=== PATIENT | male | born 1990 | race Caucasian/White ===

== ENCOUNTER 2022-04-14 18:58 | Inpatient (IN) ==
[2022-04-14 19:37] LABS: Basophils # (auto) 0.07 K/uL (0-0.2); Basophils % (auto) 0.7 %; Eosinophils # (auto) 0.33 K/uL (0-0.50); Eosinophils % (auto) 3.2 %; Hematocrit (blood only) 45.5 % (42.0-52.0); Hemoglobin 15.6 g/dl (14.0-18.0); Immature Granulocytes # (auto) 0.05 K/uL (0.01-0.20); Immature Granulocytes % (auto) 0.5 %; Lymphocytes # (auto) 3.36 K/uL (1.2-3.4); Lymphocytes % (auto) 32.4 %; Mean Corpuscular Hemoglobin 29.7 pg (25.0-34.0); Mean Corpuscular Hgb Conc 34.3 g/dL (32.0-36.0); Mean Corpuscular Volume 86.5 fL (80.0-100.0); Mean Platelet Volume 9.7 fL (9.4-12.4); Monocytes # (auto) 0.74 K/uL (0.11-0.59); Monocytes % (auto) 7.1 %; Neutrophils # (auto) 5.83 K/uL (1.40-6.50); Neutrophils % (auto) 56.1 %; Platelet Count 324 K/uL (130-400); RDW Coefficient of Variation 12.6 % (11.5-14.5); Red Blood Count 5.26 M/uL (4.70-6.10); White Blood Count 10.38 K/ul (4.8-10.8)
[2022-04-14 19:57] LABS: Partial Thromboplastin Ratio 1.1; Partial Thromboplastin Time 30.2 Seconds (21.0-31.0); Prothrombin Time 10.5 Seconds (9.0-12.0)
[2022-04-14 19:59] LABS: Albumin Level 4.5 gm/dl (3.4-5.0); Bilirubin,Total 0.3 mg/dl (0.2-1.0); Calcium 9.2 mg/dl (8.5-10.1); Potassium 4.4 mmol/L (3.5-5.1)
[2022-04-14 20:05] LABS: BUN Creatinine Ratio 16.2 (10-20); Creatinine Clr Calc Pharmacy 142.3 ml/min; Est GFR (African American) 115.5 ml/min; Est GFR (Non-African American) 99.7 ml/min
[2022-04-14] MEDS ORDERED: ONDANSETRON INJ 2 MG/ML 2 ML VIAL IV STA (20:43)
[2022-04-14] MEDS ORDERED: SODIUM CHLORIDE 0.9% 1000ML 1,000 ML IV ONE (20:43)
[2022-04-14] MEDS ORDERED: KETOROLAC TROMETHAMINE 15 MG/ML VIAL IV STA (20:43)
[2022-04-14 21:22] LABS: Albumin Globulin Ratio 1.3 (0.9-2); Globulin 3.4 gm/dl (2.5-4.0); Total Protein 7.9 gm/dl (6.0-8.3)
[2022-04-14] MEDS ORDERED: MoRPHine SULFATE 4 MG/ML 1 ML CARP\\VIAL IV STA (22:53)
--- NOTE | 2022-04-15 | Emergency Department Note ---
History of Present Illness General Chief Complaint: Cardiac Assessment Stated Complaint: CHEST PAIN,BACK PAIN,VOMIT Time Seen by Provider: 04/14/22 20:32 History of Present Illness Provider Complaint: abdominal pain Onset (ago): 1 day(s) Pain Consistency: constant Location: epigastric Radiation: back and chest Severity: moderate Quality: + stabbing, + aching, + sharp and + dull Relieved By: + nothing Exacerbated By: + nothing Context: no foreign travel, no possible food poisoning, no sick contacts, no recent antibiotic use, no recent surgery/procedure or no recent injury Associated Symptoms: + nausea, + vomiting, + chills and + chest pain; no fever, no dysuria, no hematemesis, no hematochezia, no melena, no hematuria and no headache Home Medications Medication Instructions Recorded Confirmed Type No Known Home Medications 04/08/21 04/14/22 History Allergies Allergy/AdvReac Type Severity Reaction Status Date / Time No Known Allergies Allergy Unverified 04/08/21 00:53 Past Med/Surg History Medical History No pertinent past medical history Surgical History No pertinent past surgical history Family History Other Gall stone Social History Smoking Status: Never smoker Preferred Language: Ecuadorean Feels Safe at Home: Yes Physical Exam Vital Signs: Vital Signs - 24 hr 04/14/22 19:04 04/14/22 19:04 04/14/22 19:04 Temperature 36.7 C Temperature Source Temporal Artery Sc an Pulse Rate 66 82 Pulse Rate [Apical ] Pulse Rhythm Regular Respiratory Rate 20 17 Respiratory Effort / Characteristics Non-Labored Sponta neous Respiratory Depth Normal Blood Pressure 164/96 H Blood Pressure [Le ft Arm] Blood Pressure Josephine n 118 Blood Pressure Josephine n [Left Arm] Blood Pressure Pos ition Sitting Pulse Oximetry 99 97 98 Oxygen Delivery Me thod Room Air Room Air Room Air Sepsis Recent Feve r Within 48 Hours No Sepsis New/Unexpla ined Change in Men clare Status No Sepsis Action Take n by Nursing No Action Required 04/14/22 20:58 04/14/22 21:12 04/14/22 23:12 Temperature Temperature Source Pulse Rate 54 L 60 Pulse Rate [Apical ] 60 Pulse Rhythm Respiratory Rate 18 18 Respiratory Effort / Characteristics Non-Labored Respiratory Depth Normal Blood Pressure 161/99 H Blood Pressure [Le ft Arm] 125/67 Blood Pressure Josephine n 119 Blood Pressure Josephine n [Left Arm] 86 Blood Pressure Pos ition Pulse Oximetry 97 96 Oxygen Delivery Me thod Room Air Room Air Sepsis Recent Feve r Within 48 Hours Sepsis New/Unexpla ined Change in Men clare Status Sepsis Action Take n by Nursing 04/14/22 23:43 04/15/22 00:30 Temperature Temperature Source Pulse Rate Pulse Rate [Apical ] 61 62 Pulse Rhythm Respiratory Rate 18 16 Respiratory Effort / Characteristics Non-Labored Respiratory Depth Normal Blood Pressure Blood Pressure [Le ft Arm] 118/81 116/80 Blood Pressure Josephine n Blood Pressure Josephine n [Left Arm] 93 92 Blood Pressure Pos ition Pulse Oximetry 96 97 Oxygen Delivery Me thod Room Air Room Air Sepsis Recent Feve r Within 48 Hours Sepsis New/Unexpla ined Change in Men clare Status Sepsis Action Take n by Nursing Physical Exam: Physical Exam HENT: Exam performed. - Head: Normocephalic and atraumatic. - Mouth/Throat: The oropharynx is clear and moist. No trismus in the jaw. No dental abscesses or uvula swelling. No oropharyngeal exudate or tonsillar abscesses. NECK: Normal range of motion. Neck supple. No JVD present. No spinous process tenderness present. No rigidity. No tracheal deviation and normal range of motion present. CV: Normal rate, regular rhythm, normal heart sounds and intact distal pulses. There is no peripheral edema. Palpable radial pulses bue. PULM/CHEST: Effort normal and breath sounds normal. No respiratory distress. No stridor. He has no wheezes. He has no rales. - Chest Wall: He exhibits no tenderness. ABD: The abdomen is soft. Bowel sounds are normal. He has no distension. No mass is present. There is tenderness to palpation of the epigastric area. There is no rebound, no guarding, no Zavala's sign and no tenderness at McBurney's point. Rovsig negative. MUSC/SKEL: Normal range of motion. There is no peripheral edema, tenderness or deformity. LYMPH: No cervical adenopathy. NEURO: Motor and sensation grossly intact. Course Course 2031: The patient was evaluated in room C8. A complete history and physical exam was performed Cardiac monitoring: An order was placed for continuous cardiac monitoring. The monitor shows a rate of 60 with sinus rhythm interpreted by me 0025:Vital signs stable. Labs within normal limits. Ultrasound shows gallstones with possible cholecystitis. Patient still reporting abdominal pain requiring analgesia. Discussed case with Dr. Sesay general surgery who recommends admission to medicine he will be on consult. Antibiotics ordered for the patient. Patient will be admitted to the [facility] team. Administered Medications Metronidazole (Flagyl) 500 mg in 100 mls @ 100 mls/hr IV NOW STA Stop: 04/15/22 01:07 Last Admin: 04/15/22 00:59 Dose: 100 mls/hr Documented By: RAYMUNDO Discontinued Medications Hydromorphone HCl (Hydromorphone Inj 1 Mg/Ml Syringe) 1 mg IV NOW STA Stop: 04/15/22 00:14 Last Admin: 04/15/22 00:22 Dose: 1 mg Documented By: RAYMUNDO Sodium Chloride (Nss 1000ml) 1,000 mls @ 999 mls/hr IV .Q1H1M ONE Stop: 04/14/22 21:43 Last Infusion: 04/14/22 22:09 Dose: 0 mls/hr Documented By: Admin: 04/14/22 20:50 Dose: 999 mls/hr Documented By: HEIDI Ceftriaxone Sodium (Rocephin) 2,000 mg in 70 mls @ 120 mls/hr IV ONE STA Stop: 04/15/22 00:42 Last Admin: 04/15/22 00:28 Dose: 120 mls/hr Documented By: RAYMUNDO Ketorolac Tromethamine (Ketorolac Tromethamine 15 Mg/Ml Vial) 15 mg IV NOW STA Stop: 04/14/22 20:44 Last Admin: 04/14/22 20:51 Dose: 15 mg Documented By: HEIDI Morphine Sulfate (Morphine Sulfate 4 Mg/Ml 1 Ml Carp\Vial) 8 mg IV NOW STA Stop: 04/14/22 22:54 Last Admin: 04/14/22 23:13 Dose: 8 mg Documented By: RAYMUNDO Ondansetron HCl (Ondansetron Inj 2 Mg/Ml 2 Ml Vial) 4 mg IV NOW STA Stop: 04/14/22 20:44 Last Admin: 04/14/22 20:50 Dose: 4 mg Documented By: HEIDI Medical Decision Making Laboratory Data Attestation: I reviewed the patient's lab results. 04/14/22 19:16 04/14/22 19:16 Lab Results 04/14/22 04/14/22 04/14/22 Range/Units 19:16 19:16 19:16 WBC 10.38 (4.8-10.8) K/ul RBC 5.26 (4.70-6.10) M/uL Hgb 15.6 (14.0-18.0) g/dl Hct 45.5 (42.0-52.0) % MCV 86.5 (80.0-100.0) fL MCH 29.7 (25.0-34.0) pg MCHC 34.3 (32.0-36.0) g/dL RDW Std Deviation 40.0 (36.4-46.3) fL RDW Coeff of Sheldon 12.6 (11.5-14.5) % Plt Count 324 (130-400) K/uL MPV 9.7 (9.4-12.4) fL Immature Gran % (Auto) 0.5 % Neut % (Auto) 56.1 % Lymph % (Auto) 32.4 % Millard % (Auto) 7.1 % Eos % (Auto) 3.2 % Baso % (Auto) 0.7 % Neut # (Auto) 5.83 (1.40-6.50) K/uL Lymph # (Auto) 3.36 (1.2-3.4) K/uL Millard # (Auto) 0.74 H (0.11-0.59) K/uL Eos # (Auto) 0.33 (0-0.50) K/uL Baso # (Auto) 0.07 (0-0.2) K/uL Immature Gran # (Auto) 0.05 (0.01-0.20) K/uL PT 10.5 (9.0-12.0) Seconds INR 1.0 (0.9-1.1) APTT 30.2 (21.0-31.0) Seconds PTT Ratio 1.1 Sodium 137 (136-145) mmol/L Potassium 4.4 (3.5-5.1) mmol/L Chloride 105 (98-107) mmol/L Carbon Dioxide 27 (21-32) mmol/L Anion Gap 5 (3-11) BUN 16 (6-23) mg/dl Creatinine 0.99 (0.6-1.4) mg/dl Est Cr Clr Drug Dosing 142.3 ml/min Est GFR ( Amer) 115.5 ml/min Est GFR (Non-Af Amer) 99.7 ml/min BUN/Creatinine Ratio 16.2 (10-20) Glucose 117 H (70-99(Fasting)) mg/dl Calcium 9.2 (8.5-10.1) mg/dl Total Bilirubin 0.3 (0.2-1.0) mg/dl AST 22 (13-39) U/L ALT 57 H (7-52) U/L Alkaline Phosphatase 59 (34-104) U/L Troponin I High Sens 3.0 (0-20) pg/ml Total Protein 7.9 (6.0-8.3) gm/dl Albumin 4.5 (3.4-5.0) gm/dl Globulin 3.4 (2.5-4.0) gm/dl Albumin/Globulin Ratio 1.3 (0.9-2) Lipase Cancelled SARS-CoV-2, RNA, NAAT (NEGATIVE) 04/14/22 04/15/22 Range/Units 19:16 00:30 WBC (4.8-10.8) K/ul RBC (4.70-6.10) M/uL Hgb (14.0-18.0) g/dl Hct (42.0-52.0) % MCV (80.0-100.0) fL MCH (25.0-34.0) pg MCHC (32.0-36.0) g/dL RDW Std Deviation (36.4-46.3) fL RDW Coeff of Sheldon (11.5-14.5) % Plt Count (130-400) K/uL MPV (9.4-12.4) fL Immature Gran % (Auto) % Neut % (Auto) % Lymph % (Auto) % Millard % (Auto) % Eos % (Auto) % Baso % (Auto) % Neut # (Auto) (1.40-6.50) K/uL Lymph # (Auto) (1.2-3.4) K/uL Millard # (Auto) (0.11-0.59) K/uL Eos # (Auto) (0-0.50) K/uL Baso # (Auto) (0-0.2) K/uL Immature Gran # (Auto) (0.01-0.20) K/uL PT (9.0-12.0) Seconds INR (0.9-1.1) APTT (21.0-31.0) Seconds PTT Ratio Sodium (136-145) mmol/L Potassium (3.5-5.1) mmol/L Chloride (98-107) mmol/L Carbon Dioxide (21-32) mmol/L Anion Gap (3-11) BUN (6-23) mg/dl Creatinine (0.6-1.4) mg/dl Est Cr Clr Drug Dosing ml/min Est GFR ( Amer) ml/min Est GFR (Non-Af Amer) ml/min BUN/Creatinine Ratio (10-20) Glucose (70-99(Fasting)) mg/dl Calcium (8.5-10.1) mg/dl Total Bilirubin (0.2-1.0) mg/dl AST (13-39) U/L ALT (7-52) U/L Alkaline Phosphatase (34-104) U/L Troponin I High Sens (0-20) pg/ml Total Protein (6.0-8.3) gm/dl Albumin (3.4-5.0) gm/dl Globulin (2.5-4.0) gm/dl Albumin/Globulin Ratio (0.9-2) Lipase 21 SARS-CoV-2, RNA, NAAT NEGATIVE (NEGATIVE) Imaging Data Attestation: I personally reviewed and interpreted this imaging study as follows: My Impression: Chest x-ray negative. Airway clear. No pneumothorax. No consolidation. No cardiomegaly or cephalization.. No free air under the diaphragm. No fractures of the skeletal structures. Radiologist's Impression: Gallbladder Ultrasound 04/14/22 20:43 Exam(s): US GALLBLADDER EXAM: US Abdomen Limited, Gallbladder CLINICAL HISTORY: Reason for exam: ro afshan. TECHNIQUE: Real-time ultrasound of the right upper quadrant with image documentation. COMPARISON: None. FINDINGS: Liver: Hepatomegaly with hepatic steatosis. Gallbladder: Cholelithiasis and gallbladder sludge with borderline wall thickening of the gallbladder. Common bile duct: Common bile duct measures 4 mm. Pancreas: Pancreas is obscured by overlying bowel gas. Right kidney: Right kidney measures 11.9 cm in long axis. IMPRESSION: 1. Cholelithiasis and gallbladder sludge with borderline wall thickening of the gallbladder. Cholecystitis cannot be excluded. 2. Hepatomegaly with hepatic steatosis. Electronically signed by: Sorin Back MD 04/15/22 00:01 AM ECG Data Attestation: I personally reviewed and interpreted this ECG as follows: Additional Comments: Sinus arrhythmia with rate of 57. IN 172 QRS 98 QTc 375. There is mild IN depression with mild concave ST elevation consistent with appearance of pericarditis MDM Narrative 2031: The patient was evaluated in room C8. A complete history and physical exam was performed Cardiac monitoring: An order was placed for continuous cardiac monitoring. The monitor shows a rate of 60 with sinus rhythm interpreted by me 0025:Vital signs stable. Labs within normal limits. Ultrasound shows gallstones with possible cholecystitis. Patient still reporting abdominal pain requiring analgesia. Discussed case with Dr. Sesay general surgery who recommends admission to medicine he will be on consult. Antibiotics ordered for the patient. Patient will be admitted to the [facility] hospitalist team. Impression & Plan Gallstone Discharge Plan Visit Data Chief Complaint: Cardiac Assessment Stated Complaint: CHEST PAIN,BACK PAIN,VOMIT ED Provider: Jay Eng Discharge Problem: Gallstone Patient Disposition: Being Evaluated by Hospitalist Forms Stand Alone Forms: My [facility] Prescriptions Prescriptions: No Action No Known Home Medications Referrals Referrals: Colton Matthews MD [Primary Care Provider] - Gallstone Qualifiers: Cholecystitis presence: with cholecystitis Cholecystitis acuity: unspecified acuity Biliary obstruction: without biliary obstruction Qualified Code(s): K80.10 - Calculus of gallbladder with chronic cholecystitis without obstruction
[2022-04-15] MEDS ORDERED: cefTRIAXone SODIUM 2,000 MG/70 ML BAG IV STA (00:08)
[2022-04-15] MEDS ORDERED: cefTRIAXone SODIUM 1 GM ADDVIAL IV STA (00:08)
[2022-04-15] MEDS ORDERED: metroNIDAZOLE 500 MG/100 ML BAG IV STA (00:08)
[2022-04-15] MEDS ORDERED: HYDROmorphone INJ 1 MG/ML SYRINGE IV STA (00:13)
--- NOTE | 2022-04-15 01:02 | History & Physical Report ---
Patient seen and examined agree with history and physical along with assessment plan as outlined in the resident's note Patient presented right upper quadrant abdominal pain clinical history and work- up suggestive of acute cholecystitis Along with ultrasound findings indicating cholelithiasis with borderline wall thickening of the gallbladder Continue empiric antibiotic therapy with ceftriaxone and Flagyl Continue IV fluids monitor hemodynamics consult general surgery to assist with management Date of Service April 15, 2022 Assessment & Plan (1) Right upper quadrant abdominal pain: Plan: -Pt with clinical history and workup suggestive of acute cholecystitis. Lower suspicion for ascending cholangitis at present as pt is clinically well appearing, afebrile, no leukocytosis, VSS -RUQ US findings- Cholelithiasis and gallbladder sludge with borderline wall thickening of the gallbladder. Cholecystitis cannot be excluded -CTAP ordered, pending -Continue ceftriaxone and Flagyl -Continue IVF LR 125 cc/hr, Zofran PRN, pain control with Toradol PRN, morphine PRN -General surgery consulted -Trend CBC, CMP Plan FENGI: NPO Code status: Full DVT ppx: SCDs Isolation: None Dispo: Medical/surgical History of Present Illness Chief Complaint: Abdominal pain Primary Care Provider: Colton Matthews MD 31 yo M with no significant PMH presenting with RUQ abdominal pain. Pt reports sudden onset of acute abdominal pain over past day. Began in upper mid abdomen with radiation to his back and also RUQ. Accompanied by nausea, denies fever or chills, no emesis or diarrhea/constipation. Describes pain as sharp and stabbing, moderate-high severity. Pain continued to persist and he came to ED for evaluation. Pt does report similar, but not quite as severe, symptoms occurring intermittently since 03/2021. ED workup unremarkable. Normal CBC, CMP, RUQ US with findings of cholelithiasis, gallbladder sludge with borderline wall thickening. Pt given morphine, Dilaudid, Toradol for pain relief. Received IVF, ceftriaxone and Flagyl in ER. On my evaluation, pt denies pain but states he received pain medication shortly ago. Denies any other symptoms. Allergies Allergy/AdvReac Type Severity Reaction Status Date / Time No Known Allergies Allergy Unverified 04/08/21 00:53 Home Medications Medication Instructions Recorded Confirmed Type No Known Home Medications 04/08/21 04/14/22 History Past Med/Surg History Medical History No pertinent past medical history Surgical History No pertinent past surgical history Family History Other Gall stone Social History Smoking Status: Never smoker Preferred Language: Frisian Feels Safe at Home: Yes Review of Systems Review of Systems: Per HPI Physical Exam Physical Exam: General: obese male, no acute distress HEENT: moist mucous membranes, PERRLA, EOMI CV: RRR, normal S1 and S2, no murmurs Resp: CTAB, unlabored respirations Abd: soft, nontender, nondistended, normal bowel sounds, no guarding or rebound, negative Zavala sign Neuro: AOx3, no focal motor or sensory deficits Skin: no rashes, warm and dry Results & Data Results & Data ([facility]) Vital Signs (Past 12 Hours) Vital Signs Temp Pulse Pulse Resp BP BP Pulse Ox 04/15/22 00:30 62 16 116/80 97 04/14/22 23:43 61 18 118/81 96 04/14/22 23:12 60 18 125/67 96 04/14/22 21:12 60 04/14/22 20:58 54 L 18 161/99 H 97 04/14/22 19:04 82 17 98 04/14/22 19:04 97 04/14/22 19:04 36.7 C 66 20 164/96 H 99 O2 Del Method 04/15/22 00:30 Room Air 04/14/22 23:43 Room Air 04/14/22 23:12 Room Air 04/14/22 21:12 04/14/22 20:58 Room Air 04/14/22 19:04 Room Air 04/14/22 19:04 Room Air 04/14/22 19:04 Room Air Resident Activity Tracking Resident Involvement: Resident Care Provided Care Provided: Adult Hospital Medicine
--- NOTE | 2022-04-15 02:08 | Surgery Consultation ---
Date of Consultation April 15, 2022 Assessment & Plan (1) Acute cholecystitis due to biliary calculus: pt is a 31 year-old male who presents to ER with one day history chest pain and epigastric pain, IMP: acute cholecystitis,cholelithiasis, plan, base on H/P, labs and U/S study, I recommend to do laparoscopic cholecystectomy, possible open or cholangiogram, D/W benefits, risks and alternatives of the surgery, the risks - infection, bleeding, injury other organs, biliary leak, may need ERCP, incisional hernia, pt understood, he agreed with surgery, he signed informed consent, I answered all questions, repeat labs CBC CMP in morning, NPO now, IV fluid, iv antibiotic, History of Present Illness Reason for Consultation: cholelithiasis, acute cholecystitis Requesting Physician: Jay Eng History of Present Illness CC: chest pain and epigastric pain HPI: pt is a 31 year-old male who is consulted for cholelithiasis and acute cholecystitis. pt presents with one day history chest pain and epigastric pain with nausea and vomiting, the pain is sharp on epigastric area, pt denies fever, no dysuria, no cough, pt had U/S study diagnosis- cholelithiasis possible cholecystitis. Allergies Allergy/AdvReac Type Severity Reaction Status Date / Time No Known Allergies Allergy Unverified 04/08/21 00:53 Home Medications Medication Instructions Recorded Confirmed Type No Known Home Medications 04/08/21 04/14/22 History Patient History Medical History No pertinent past medical history Surgical History No pertinent past surgical history Family History Other Gall stone Social History Smoking Status: Never smoker Preferred Language: Panamanian Feels Safe at Home: Yes Review of Systems Constitutional: obesity, no distress. Eyes: as per Subjective / HPI Respiratory: as per Subjective / HPI Cardiovascular: as per Subjective / HPI Gastrointestinal: as per Subjective / HPI Genitourinary: + as per Subjective / HPI Neurologic: as per Subjective / HPI Psychiatric: as per Subjective / HPI Endocrine: as per Subjective / HPI Hematologic / Lymphatic: as per Subjective / HPI Physical Exam Constitutional: WD/WN, vitals as above Eyes: PERRL, conjunctivae normal, anicteric sclerae Neck: trachea midline, no thyromegaly Respiratory: normal respiratory effort, lungs clear to auscultation Cardiovascular: RRR, no murmur, no edema Gastrointestinal (Abdomen): soft, mild tenderness at RUQ, no rebound pain, no distend, BS +, Musculoskeletal: no cyanosis or clubbing, extremities motor strength 5/5 Neurologic: patellar DTR's 2+ bilat, sensation intact Psychiatric: A+Ox3, euthymic affect Results & Data ([facility]) Vital Signs (Past 12 Hours) Vital Signs Temp Pulse Pulse Resp BP BP Pulse Ox 04/15/22 01:41 66 16 102/58 L 98 04/15/22 00:30 62 16 116/80 97 04/15/22 01:05 66 18 137/74 98 04/14/22 23:43 61 18 118/81 96 04/14/22 23:12 60 18 125/67 96 04/14/22 21:12 60 04/14/22 20:58 54 L 18 161/99 H 97 04/14/22 19:04 82 17 98 04/14/22 19:04 97 04/14/22 19:04 36.7 C 66 20 164/96 H 99 O2 Del Method 04/15/22 01:41 Room Air 04/15/22 00:30 Room Air 04/15/22 01:05 Room Air 04/14/22 23:43 Room Air 04/14/22 23:12 Room Air 04/14/22 21:12 04/14/22 20:58 Room Air 04/14/22 19:04 Room Air 04/14/22 19:04 Room Air 04/14/22 19:04 Room Air Laboratory Results Abnormal lab results 04/14/22 04/14/22 Range/Units 19:16 19:16 [place] # (Auto) 0.74 H (0.11-0.59) K/uL Glucose 117 H (70-99(Fasting)) mg/dl ALT 57 H (7-52) U/L Diagnostic Findings Exam(s): US GALLBLADDER EXAM: US Abdomen Limited, Gallbladder CLINICAL HISTORY: Reason for exam: ro afshan. TECHNIQUE: Real-time ultrasound of the right upper quadrant with image documentation. COMPARISON: None. FINDINGS: Liver: Hepatomegaly with hepatic steatosis. Gallbladder: Cholelithiasis and gallbladder sludge with borderline wall thickening of the gallbladder. Common bile duct: Common bile duct measures 4 mm. Pancreas: Pancreas is obscured by overlying bowel gas. Right kidney: Right kidney measures 11.9 cm in long axis. IMPRESSION: 1. Cholelithiasis and gallbladder sludge with borderline wall thickening of the gallbladder. Cholecystitis cannot be excluded. 2. Hepatomegaly with hepatic steatosis.
[2022-04-15] MEDS ORDERED: cefTRIAXone SODIUM 1,000 MG in DEXTROSE 5% AD-VAN 50 ML IV SCH (02:43)
[2022-04-15] MEDS ORDERED: ONDANSETRON INJ 2 MG/ML 2 ML VIAL IV PRN ×2 (02:43→10:35)
[2022-04-15] MEDS ORDERED: MoRPHine SULFATE 2 MG/ML CARP IV PRN ×2 (02:43→14:55)
[2022-04-15] MEDS ORDERED: LACTATED RINGER'S 1,000 ML IV SCH (02:43)
[2022-04-15] MEDS ORDERED: KETOROLAC TROMETHAMINE 15 MG/ML VIAL IV PRN (02:43)
[2022-04-15 03:35] LABS: Basophils # (auto) 0.05 K/uL (0-0.2); Basophils % (auto) 0.5 %; Eosinophils # (auto) 0.28 K/uL (0-0.50); Eosinophils % (auto) 2.9 %; Hematocrit (blood only) 41.1 % (42.0-52.0); Hemoglobin 13.9 g/dl (14.0-18.0); Immature Granulocytes # (auto) 0.05 K/uL (0.01-0.20); Immature Granulocytes % (auto) 0.5 %; Lymphocytes # (auto) 3.55 K/uL (1.2-3.4); Lymphocytes % (auto) 36.7 %; Mean Corpuscular Hemoglobin 29.5 pg (25.0-34.0); Mean Corpuscular Hgb Conc 33.8 g/dL (32.0-36.0); Mean Corpuscular Volume 87.3 fL (80.0-100.0); Mean Platelet Volume 9.6 fL (9.4-12.4); Monocytes # (auto) 0.72 K/uL (0.11-0.59); Monocytes % (auto) 7.4 %; Neutrophils # (auto) 5.03 K/uL (1.40-6.50); Platelet Count 271 K/uL (130-400); RDW Coefficient of Variation 12.6 % (11.5-14.5); RDW Standard Deviation 40.2 fL (36.4-46.3); Red Blood Count 4.71 M/uL (4.70-6.10); White Blood Count 9.68 K/ul (4.8-10.8)
[2022-04-15 03:50] LABS: Albumin Globulin Ratio 1.3 (0.9-2); Albumin Level 3.9 gm/dl (3.4-5.0); BUN Creatinine Ratio 15.4 (10-20); Bilirubin,Total 0.3 mg/dl (0.2-1.0); Calcium 8.8 mg/dl (8.5-10.1); Creatinine Clr Calc Pharmacy 156.1 ml/min; Est GFR (African American) 127.9 ml/min; Est GFR (Non-African American) 110.3 ml/min; Potassium 4.2 mmol/L (3.5-5.1); Total Protein 6.9 gm/dl (6.0-8.3)
[2022-04-15] MEDS: ceFAZolin 1000MG 1,000 MG/7.5 ML SYR IV SCH ×2 (04:00→15:28)
--- NOTE | 2022-04-15 07:26 | XRay Report ---
XR chest 1V portable HISTORY: 31 years-old Male Chest pain, nonspecific acute chest pain COMPARISON: 02/03/2022 TECHNIQUE: AP view of the chest FINDINGS: Cardiac silhouette is mildly enlarged. No pneumothorax, pleural effusion, airspace consolidation or p ulmonary edema. Bones appear grossly intact. IMPRESSION: No acute process. ACT 112: Negative or not required by law. The above report was generated using voice recognition software. It may contain grammatical, syntax o r spelling errors. Electronically signed by: Dave Baugh M.D. 04/15/2022 7:25 AM
[2022-04-15] MEDS ORDERED: metroNIDAZOLE 500 MG/100 ML BAG IV SCH (08:00)
--- NOTE | 2022-04-15 08:24 | Anesthesiology Consultation ---
Date of Service April 15, 2022 Assessment & Plan Chart Review Chart Review: Acceptable Risk for Surgery and Patient NOT seen in Pre Admission Testing History Surgery Operation Date: 04/15/22 07:00 Proposed Procedures p Laparoscopic Cholecystectomy - Elmer Sesay MD Height/Weight Height: 6 ft 2 in Weight: 115.7 kg Allergies Allergy/AdvReac Type Severity Reaction Status Date / Time No Known Allergies Allergy Unverified 04/08/21 00:53 Medications Home Medications Medication Instructions Recorded Confirmed Last Taken No Known Home Medications 04/08/21 04/14/22 Unknown Active Medications Generic Name Dose Route Start Last Admin Trade Name Freq PRN Reason Stop Dose Admin Lactated Ringer's 1,000 mls @ 125 mls/hr 04/15/22 02:43 04/15/22 03:16 Lr IV 04/15/22 10:42 125 mls/hr .Q8H MARISEL Administration Cefazolin Sodium 1,000 mg in 7.5 mls @ 2.5 mls/min 04/15/22 04:00 04/15/22 04:00 Ancef 1000mg IV 04/25/22 03:59 2.5 mls/min Q8H MARISEL Administration Metronidazole 500 mg in 100 mls @ 100 mls/hr 04/15/22 08:00 04/15/22 07:53 Flagyl IV 04/25/22 07:59 100 mls/hr Q8H MARISEL Administration Past Medical History Medical History No pertinent past medical history Past Family History Family History Other Gall stone Past Surgical History Surgical History No pertinent past surgical history Social History Smoking Status: Never smoker Hx Alcohol Use: No Hx Substance Use: No substance use type: does not use Physical Exam Vital Signs Last Vital Signs Temp 36.6 C 04/15/22 07:45 Pulse 66 04/15/22 07:45 Resp 16 04/15/22 07:45 BP 106/68 04/15/22 07:45 Pulse Ox 97 04/15/22 07:45 O2 Del Method Room Air 04/15/22 07:45 O2 Flow Rate 2 04/15/22 02:37 Testing Laboratory Results 04/15/22 03:06 04/15/22 03:06 PT 10.5 Seconds (9.0-12.0) 04/14/22 19:16 INR 1.0 (0.9-1.1) 04/14/22 19:16 APTT 30.2 Seconds (21.0-31.0) 04/14/22 19:16
[2022-04-15] MEDS ORDERED: FLUARIX QUADRIVALENT 0.5 ML SYR IM ONE (09:00)
[2022-04-15] MEDS ORDERED: MIDAZOLAM HCL 1 MG/ML 2ML VIAL ONE (09:58)
[2022-04-15] MEDS ORDERED: DEXAMETHASONE SOD INJ 4 MG/ML VIAL ONE (09:58)
[2022-04-15] MEDS ORDERED: fentaNYL citrate 100 MCG/2 ML VIAL ONE ×2 (09:58→12:25)
[2022-04-15] MEDS ORDERED: PROPOFOL IV EMULSION 10 MG/ML 20 ML VIAL IV ONE (09:58)
[2022-04-15] MEDS ORDERED: ROCURONIUM BROMIDE 10 MG/ML 5 ML VIAL IV ONE ×4 (09:58→13:20)
[2022-04-15] MEDS ORDERED: LIDOCAINE 2% MPF LOCAL 5 ML VIAL INFIL ONE (09:58)
[2022-04-15] MEDS ORDERED: ONDANSETRON INJ 2 MG/ML 2 ML VIAL ONE (09:58)
[2022-04-15] MEDS ORDERED: ACETAMINOPHEN 1000 MG/100 ML IV IV ONE (10:00)
[2022-04-15] MEDS ORDERED: HYDROmorphone INJ 2 MG/ML SYR/VIAL IV PRN (10:35)
[2022-04-15] MEDS ORDERED: fentaNYL citrate 100 MCG/2 ML VIAL IV PRN (10:35)
[2022-04-15] MEDS ORDERED: ATROPINE SULFATE 0.1 MG/ML 10ML SYR IV PRN (10:35)
[2022-04-15] MEDS ORDERED: ePHEDrine sulfate 50 MG/ML AMP IV PRN (10:35)
--- NOTE | 2022-04-15 10:37 | History & Physical Bridge Note ---
Date of Service April 15, 2022 History & Physical Bridge Note I have examined the patient, reviewed the History & Physical and in the interval since the performance of the History & Physical I have noted the following changes of clinical significance: no changes noted
[2022-04-15] MEDS ORDERED: BACITRACIN OINT 15 GM TUBE ONE (10:48)
[2022-04-15] MEDS ORDERED: LIDOCAINE 1% LOCAL 20 ML VIAL ONE (10:48)
[2022-04-15] MEDS ORDERED: BUPIVACAINE 0.5 % 5 MG/1 ML MPF 30ML VIAL ONE (10:48)
--- NOTE | 2022-04-15 12:30 | Electrocardiogram Report ---
Test Reason : Blood Pressure : / mmHG Vent. Rate : 057 BPM Atrial Rate : 057 BPM P-R Int : 172 ms QRS Dur : 098 ms QT Int : 386 ms P-R-T Axes : 050 075 051 degrees QTc Int : 375 ms Sinus bradycardia with sinus arrhythmia Peaked T waves(consider ischemia,hyperkalemia,etc.) Abnormal ECG When compared with ECG of 03-FEB-2022 05:35, No significant change was found Confirmed by Renato Conde ([id number]) on 04/15/2022 12:30:25 PM Referred By: REFERRED SELF Confirmed By:Renato Conde
[2022-04-15] MEDS ORDERED: FLOSEAL HEMOSTATIC MATRIX 10ML TOP ONE (13:11)
--- NOTE | 2022-04-15 13:44 | Post Operative Brief Note ---
Immediate Post Op Note v1 Date of Surgery April 15, 2022 Pre & Post Diagnosis Operation Date: 04/15/22 07:00 Pre-Op Diagnosis: Acute cholecystitis due to biliary calculus Post-Op Diagnosis: Acute cholecystitis due to biliary calculus I identified the patient and participated in the time-out.: Yes Procedure Operation Date: 04/15/22 07:00 Actual Procedures p Laparoscopic Cholecystectomy(Not Applicable) - Elmer Sesay MD Surgeon Elmer Sesay MD [employer] ARMIN Garsia Estimated Blood Loss 30 Findings Consistent with Post-Op Diagnosis significant inflammation on gallbladder wall, multiple gallstones. Fluids 900ml Specimens gallbladder Anesthesia Type General Complications none Disposition Accompanied Patient To Recovery: Yes
--- NOTE | 2022-04-15 14:25 | Anesthesiology Progress Note ---
Date of Service April 15, 2022 Anesthesia Post Procedure Vital Signs Vital Signs: Temp Pulse Pulse Pulse Pulse Resp BP 04/15/22 10:01 36.5 C 79 20 04/15/22 07:45 36.6 C 66 16 04/15/22 02:37 36.4 C L 58 L 18 04/15/22 02:15 04/15/22 02:05 62 18 04/15/22 01:41 66 16 04/15/22 00:30 62 16 04/15/22 01:05 66 18 04/14/22 23:43 61 18 04/14/22 23:12 60 18 04/14/22 21:12 60 04/14/22 20:58 54 L 18 161/99 H 04/14/22 19:04 82 17 04/14/22 19:04 04/14/22 19:04 36.7 C 66 20 164/96 H BP Pulse Ox O2 Del Method O2 Flow Rate 04/15/22 10:01 114/78 95 Room Air 04/15/22 07:45 106/68 97 Room Air 04/15/22 02:37 115/76 97 Nasal Cannula 2 04/15/22 02:15 Room Air 04/15/22 02:05 121/63 97 Room Air 04/15/22 01:41 102/58 L 98 Room Air 04/15/22 00:30 116/80 97 Room Air 04/15/22 01:05 137/74 98 Room Air 04/14/22 23:43 118/81 96 Room Air 04/14/22 23:12 125/67 96 Room Air 04/14/22 21:12 04/14/22 20:58 97 Room Air 04/14/22 19:04 98 Room Air 04/14/22 19:04 97 Room Air 04/14/22 19:04 99 Room Air Transfer of Care Handoff Completed per policy Notes Mental Status: alert / awake / arousable and participated in evaluation Nausea / Vomiting: adequately controlled Pain: adequately controlled Airway Patency, RR, SpO2: stable & adequate BP & HR: stable & adequate Hydration State: stable & adequate Anesthetic Complications: no major complications apparent and Pt Satisfied with anesthetic care
[2022-04-15] MEDS ORDERED: PIPERACILLIN/TAZOBACTAM 3.375 GM in DEXTROSE 5% 100 ML IV ONE (14:30)
--- NOTE | 2022-04-15 14:51 | History & Physical Bridge Note ---
Date of Service April 15, 2022 History & Physical Bridge Note I have examined the patient, reviewed the History & Physical and in the interval since the performance of the History & Physical I have noted the following changes of clinical significance: no changes noted Patient seen in PACU following his laparoscopic cholecystectomy done this afternoon by Dr. Sesay. He is currently very sleepy, opens eyes briefly and dozes back off. Hemodynamically stable. Heart regular, lungs clear, belly soft, and legs w/o edema. Appears surgery ordered empiric Zosyn. Advance diet per general surgery. Pain control. AM labs. Anticipate will be able to be discharged home tomorrow. Updated Dr. Guzman on plan.
[2022-04-15] MEDS ORDERED: oxyCODONE/ACETAMINOPHEN 5mg/325mg TAB PO PRN ×2 (14:55)
[2022-04-15] MEDS: LACTATED RINGER'S 1,000 ML IV SCH (15:50)
[2022-04-15] MEDS: oxyCODONE/ACETAMINOPHEN 5mg/325mg TAB PO PRN ×2 (16:28→20:58)
[2022-04-15] MEDS ORDERED: PIPERACILLIN/TAZOBACTAM 3.375 GM in DEXTROSE 5% 100 ML IV SCH (20:00)
[2022-04-15] MEDS: PIPERACILLIN/TAZOBACTAM 3.375 GM in DEXTROSE 5% 100 ML IV SCH (20:52)
--- NOTE | 2022-04-16 00:21 | Operative Report (OR) ---
PREOPERATIVE DIAGNOSES: Acute cholecystitis, cholelithiasis. POSTOPERATIVE DIAGNOSES: Acute cholecystitis, cholelithiasis. OPERATION: Laparoscopic cholecystectomy. SURGEON: Elmer Sesay MD NEUROPSYCHOLOGIST: Frida Herrera PA-C ANESTHESIA: General. ESTIMATED BLOOD LOSS: About 30 mL. FINDINGS: Significant inflammation on the gallbladder wall, multiple gallstones. COMPLICATIONS: None. INDICATIONS FOR THE PROCEDURE: This is a 31-year-old gentleman who was admitted to the hospital for acute cholecystitis, cholelithiasis. I recommended to do laparoscopic cholecystectomy, possible open , possible cholangiogram. I did talk to the patient about the benefits, risks, alternate procedures. I indicated the risks may include, but not limited to, such as bleeding, infection, sepsis, injury to other organs, bile leak, may need ERCP, remaining common bile duct stone, incisional hernia. The patient understands. He signed informed consent and I answered all questions. DETAILS OF PROCEDURE: After we identified the patient and verified the procedure, we brought in the patient to the OR, put the patient in the supine position on the OR table. The patient received SCDs on bilateral legs to prevent DVT. Also, the patient received 2 grams of Ancef IV for prophylactic a ntibiotic and also the patient received 500 mg of Flagyl IV for prophylactic antibiotic. Also, the p atient received general anesthesia without difficulty. The abdomen was prepped and draped in routine sterile fashion. After timeout, I injected the local anesthesia by using 1% lidocaine mixed with 0. 5% Marcaine just above the umbilicus, then I made a small incision just above umbilicus, opened fasci a, opened peritoneum. Under direct vision, put a Bryson trocar in, connected to CO2 to create pneumo peritoneum, flow rate at 6 liters per minute, pressure not more than 14 mmHg. Once we got a nice pneumoperitoneum, we put a camera in, looked around the abdomen, it shows normal f inding on the liver; however, the gallbladder shows significant inflammation on the gallbladder wall with gallbladder significant for distention. Confirmed diagnosis of acute cholecystitis. Once we con firmed the diagnosis, I put another two 5 mm trocars on the right upper quadrant and one was 12 troca r on the epigastric area. Once all trocars in, we used a large needle to decompress the gallbladder f irst and suctioned all of the bile from the gallbladder inside. Then, we used another grasper to hol d the base of gallbladder, put in the direction to the diaphragm, another grasper to hold the pouch o f gallbladder, put the latter to try to explore the triangle of Calot. Based on significant inflamma tion on the gallbladder neck, we did careful dissection of the gallbladder neck. Then the cystic carmelita t was identified and mobilized. Significant dilatation of about 1 cm. Used two 10 mm metal clips on the proximal cystic duct, one on the distal cystic duct, then used a scissor for transection of cysti c artery, rechecked, no bile leak. The cystic artery was identified and mobilized. I put two 10 mm metal clips on the proximal cystic artery, one on the distal cystic artery. I then used scissors for transection of cystic artery, rechecked, no active bleeding. Then, we took down gallbladder through the liver bed by using Bovie; however, because of significant fluid still on the gallbladder and als o significant inflammation, it was difficult for dissection of complete gallbladder out from liver. At this moment, I used the Endo-ROSA stapler 60 for transection of the half of the gallbladder and the n at this moment, we would be able to remove the remainder of gallbladder from liver bed. Then, we u sed catch bag to catch these two pieces of gallbladder, removed through the abdominal cavity. Then, we reinserted the Bryson trocar in, connected to CO2 to create pneumoperitoneum. Again, based on sig nificant inflammation on the liver bed, there was some small oozing on the liver bed. We used the Fl oSeal to attach the liver bed. No active bleeding, no bile leak. Then, we removed all trocars under direct vision. No active bleeding from the trocar site. Pneumoperitoneum was released. Then I juan a sed the umbilical incision fascial layer by using 0 Vicryl [id number] x2, closed subcutaneous la ruma by using 2-0 Vicryl interruptedly, closed skin by using 4-0 Vicryl continuous running, closed the epigastric incision, the fascial layer by using 0 Vicryl hzexzt-[id number] x2, closed the subcutaneous layer with 2-0 Vicryl interruptedly, closed skin by using 4-0 Vicryl interruptedly, closed another t wo 5 mm trocar sites skin only by using 4-0 Vicryl. Then, we put the dressing on. The patient franck ated the procedure well. All the instrument, needle, and sponge counts were correct x2 at the end of the case. The patient was transferred to recovery room in stable condition. The specimen was sent to pathology. After the procedure, I did talk to the patient and the patient's family member about t he OR finding and the procedure we did, they understand. The assistant vice president, Frida, was necessary for this procedure. Her role was to hold the camera, ret raction and exposure. Job ID: [id number]
[2022-04-16] MEDS: LACTATED RINGER'S 1,000 ML IV SCH (01:52)
[2022-04-16] MEDS: oxyCODONE/ACETAMINOPHEN 5mg/325mg TAB PO PRN ×2 (03:54→12:10)
[2022-04-16] MEDS: PIPERACILLIN/TAZOBACTAM 3.375 GM in DEXTROSE 5% 100 ML IV SCH (04:39)
[2022-04-16 08:23] LABS: Basophils # (auto) 0.02 K/uL (0-0.2); Basophils % (auto) 0.2 %; Eosinophils # (auto) 0.01 K/uL (0-0.50); Eosinophils % (auto) 0.1 %; Hemoglobin 13.5 g/dl (14.0-18.0); Immature Granulocytes # (auto) 0.05 K/uL (0.01-0.20); Immature Granulocytes % (auto) 0.4 %; Lymphocytes % (auto) 19.1 %; Mean Corpuscular Hemoglobin 29.3 pg (25.0-34.0); Mean Corpuscular Hgb Conc 33.8 g/dL (32.0-36.0); Mean Platelet Volume 9.6 fL (9.4-12.4); Monocytes # (auto) 0.98 K/uL (0.11-0.59); Monocytes % (auto) 7.8 %; Neutrophils # (auto) 9.09 K/uL (1.40-6.50); Neutrophils % (auto) 72.4 %; Platelet Count 293 K/uL (130-400); RDW Coefficient of Variation 12.7 % (11.5-14.5); White Blood Count 12.55 K/ul (4.8-10.8)
[2022-04-16 08:45] LABS: Albumin Globulin Ratio 1.5 (0.9-2); Albumin Level 4.1 gm/dl (3.4-5.0); BUN Creatinine Ratio 11.2 (10-20); Bilirubin,Total 0.9 mg/dl (0.2-1.0); Calcium 9.3 mg/dl (8.5-10.1); Est GFR (African American) 116.9 ml/min; Est GFR (Non-African American) 100.9 ml/min; Globulin 2.8 gm/dl (2.5-4.0); Total Protein 6.9 gm/dl (6.0-8.3)
--- NOTE | 2022-04-16 09:19 | Hospitalist Progress Note ---
Date of Service April 16, 2022 Assessment & Plan Admission and Anticipated Discharge Date Admission Date: April 15, 2022 Subjective eval this morning, feeling alright. has been ambulating the halls. not passing gas but has good belly sounds. Had some jello last night but nothing but sips of water. Not yet seen by general surgery but stated he believes he/ was told they about possible need for endoscopy. GB so inflamed some spilled stones. Discussed w/ general surgery and no need for ERCP and clear liquid diet ordered. If tolerating advancement possibly could discharge later today. Results & Data Results & Data ([facility]) Vital Signs (Past 12 Hours) Vital Signs Temp Pulse Resp BP Pulse Ox O2 Del Method 04/16/22 07:17 36.9 C 74 16 126/69 96 Room Air 04/16/22 03:51 37 C 64 20 131/74 96 Room Air 04/15/22 22:49 37 C 67 18 132/81 96 Room Air PG Care Time/CCT Total # of Minutes Spent Total Time Spent with Patient: Total time spent is greater than 50% in coordination of care (as documented) at patient's floor/unit and/or counseling patient: Coding Diagnoses
--- NOTE | 2022-04-16 10:07 | Surgery Progress Note ---
Date of Service April 16, 2022 Assessment & Plan (1) Acute cholecystitis due to biliary calculus: Plan: POD # 1 s/p laparoscopic cholecystectomy -afebrile, vss - mild leukocytosis of 12.5K - t. bili wnl, lfts slightly elevated - incisional pain controlled Plan: Continue pain management as needed Continue abx, PO Cipro/flagyl for 5 days on discharge advance diet as tolerated if does well okay from surgical standpoint for discharge this afternoon Dr. Sesay has seen and examined pt, agrees with above. Admission and Anticipated Discharge Date Admission Date: April 15, 2022 Subjective feeling okay this am no fevers or chills incisional pain, controlled no n,v clear liquid diet tray just delivered Physical Exam Constitutional: WD/WN, vitals as above cooperative and comfortable; no acute distress and not ill appearing Neck: normal visual inspection and trachea midline Respiratory: normal respiratory effort; no respiratory distress Gastrointestinal (Abdomen): Inspection/Auscultation: abdomen normal to inspection and + abdominal surgical incision (covered with dressings, some dried blood on epigastric dressing); abdomen not distended Percussion/Palpation: + abdomen tender (at incision sites) and abdomen soft; no guarding and abdomen not rigid Skin: no rashes, warm and dry no jaundice Results & Data ([facility]) Vital Signs (Past 12 Hours) Vital Signs Temp Pulse Resp BP Pulse Ox O2 Del Method 04/16/22 07:17 36.9 C 74 16 126/69 96 Room Air 04/16/22 03:51 37 C 64 20 131/74 96 Room Air 04/15/22 22:49 37 C 67 18 132/81 96 Room Air Laboratory Results 04/16/22 04/16/22 Range/Units 07:54 07:54 WBC 12.55 H (4.8-10.8) K/ul RBC 4.60 L (4.70-6.10) M/uL Hgb 13.5 L (14.0-18.0) g/dl Hct 40.0 L (42.0-52.0) % MCV 87.0 (80.0-100.0) fL MCH 29.3 (25.0-34.0) pg MCHC 33.8 (32.0-36.0) g/dL RDW Std Deviation 40.0 (36.4-46.3) fL RDW Coeff of Sheldon 12.7 (11.5-14.5) % Plt Count 293 (130-400) K/uL MPV 9.6 (9.4-12.4) fL Immature Gran % (Auto) 0.4 % Neut % (Auto) 72.4 % Lymph % (Auto) 19.1 % Charlotte % (Auto) 7.8 % Eos % (Auto) 0.1 % Baso % (Auto) 0.2 % Neut # (Auto) 9.09 H (1.40-6.50) K/uL Lymph # (Auto) 2.40 (1.2-3.4) K/uL Charlotte # (Auto) 0.98 H (0.11-0.59) K/uL Eos # (Auto) 0.01 (0-0.50) K/uL Baso # (Auto) 0.02 (0-0.2) K/uL Immature Gran # (Auto) 0.05 (0.01-0.20) K/uL Sodium 138 (136-145) mmol/L Potassium 4.0 (3.5-5.1) mmol/L Chloride 105 (98-107) mmol/L Carbon Dioxide 29 (21-32) mmol/L Anion Gap 4 (3-11) BUN 11 (6-23) mg/dl Creatinine 0.98 (0.6-1.4) mg/dl Est Cr Clr Drug Dosing 145.0 ml/min Est GFR ( Amer) 116.9 ml/min Est GFR (Non-Af Amer) 100.9 ml/min BUN/Creatinine Ratio 11.2 (10-20) Glucose 110 H (70-99(Fasting)) mg/dl Calcium 9.3 (8.5-10.1) mg/dl Total Bilirubin 0.9 D (0.2-1.0) mg/dl AST 42 H (13-39) U/L ALT 88 H (7-52) U/L Alkaline Phosphatase 51 (34-104) U/L Total Protein 6.9 (6.0-8.3) gm/dl Albumin 4.1 (3.4-5.0) gm/dl Globulin 2.8 (2.5-4.0) gm/dl Albumin/Globulin Ratio 1.5 (0.9-2) Lipase 12 (11-82) U/L
--- NOTE | 2022-04-16 11:52 | Discharge Summary ---
Date of Service April 16, 2022 Admission HPI Per Admitting Provider 31 yo M with no significant PMH presenting with RUQ abdominal pain. Pt reports sudden onset of acute abdominal pain over past day. Began in upper mid abdomen with radiation to his back and also RUQ. Accompanied by nausea, denies fever or chills, no emesis or diarrhea/constipation. Describes pain as sharp and stabbing, moderate-high severity. Pain continued to persist and he came to ED for evaluation. Pt does report similar, but not quite as severe, symptoms occurring intermittently since 03/2021. ED workup unremarkable. Normal CBC, CMP, RUQ US with findings of cholelithiasis, gallbladder sludge with borderline wall thickening. Pt given morphine, Dilaudid, Toradol for pain relief. Received IVF, ceftriaxone and Flagyl in ER. On my evaluation, pt denies pain but states he received pain medication shortly ago. Denies any other symptoms. Admission Exam Per Admitting Provider General: obese male, no acute distress HEENT: moist mucous membranes, PERRLA, EOMI CV: RRR, normal S1 and S2, no murmurs Resp: CTAB, unlabored respirations Abd: soft, nontender, nondistended, normal bowel sounds, no guarding or rebound, negative Zavala sign Neuro: AOx3, no focal motor or sensory deficits Skin: no rashes, warm and dry Principal Diagnosis Acute Cholecystitis Discharge Exam General: WD/WN obese male sitting up in bed, NAD HEENT: head normocephalic, atraumatic, mmm, trachea midline Resp: CTAB, no w/c/r, on room air CV: RRR, no m/r/g, no pitting edema/calf tenderness, pulses palpable GI: +BS throughout, lap incisions noted, left side w/ some dried blood present, appropriately tender about incisions, no drainage/erythema, no rigidity/guarding ; no varela MSK/Neuro: no focal deficits, follows commands Psych: AOx3, pleasant and cooperative Discharge Data Allergies Allergy/AdvReac Type Severity Reaction Status Date / Time No Known Allergies Allergy Unverified 04/08/21 00:53 Consultations 04/15/22 00:09 ED Decision to Admit Stat 04/15/22 02:43 Consult General Surgery Routine Procedures Performed Operation Date: 04/15/22 07:00 Actual Procedures p Laparoscopic Cholecystectomy(Not Applicable) - Elmer Sesay MD Ordered Studies Chest X-Ray 04/14/22 19:04 XR chest 1V portable HISTORY: 31 years-old Male Chest pain, nonspecific acute chest pain COMPARISON: 02/03/2022 TECHNIQUE: AP view of the chest FINDINGS: Cardiac silhouette is mildly enlarged. No pneumothorax, pleural effusion, airspace consolidation or pulmonary edema. Bones appear grossly intact. IMPRESSION: No acute process. ACT 112: Negative or not required by law. The above report was generated using voice recognition software. It may contain grammatical, syntax or spelling errors. Electronically signed by: Dave Baugh M.D. 04/15/2022 7:25 AM Gallbladder Ultrasound 04/14/22 20:43 Exam(s): US GALLBLADDER EXAM: US Abdomen Limited, Gallbladder CLINICAL HISTORY: Reason for exam: ro afshan. TECHNIQUE: Real-time ultrasound of the right upper quadrant with image documentation. COMPARISON: None. FINDINGS: Liver: Hepatomegaly with hepatic steatosis. Gallbladder: Cholelithiasis and gallbladder sludge with borderline wall thickening of the gallbladder. Common bile duct: Common bile duct measures 4 mm. Pancreas: Pancreas is obscured by overlying bowel gas. Right kidney: Right kidney measures 11.9 cm in long axis. IMPRESSION: 1. Cholelithiasis and gallbladder sludge with borderline wall thickening of the gallbladder. Cholecystitis cannot be excluded. 2. Hepatomegaly with hepatic steatosis. Electronically signed by: Sorin Back MD 04/15/22 00:01 AM Hospital Course (1) Acute cholecystitis due to biliary calculus: admitted for abdominal pain RUQ US concerning for acute afshan, general surgery consulted IV Zosyn s/p laparoscopic cholecystectomy with Dr Sesay on 04/15. EBL 30cc Leukocytosis likely reactive, LFts slight elevated but Tb wnl. Having incisional pain. Afebrile Tolerating diet, advanced prior to discharge Pain control/antiemetics/IVF as needed for supportive care Discussed w/ general surgery and stable for discharge, recs for Cipro/Flagyl x another 5 days at discharge Outpatient follow up Total Time Total Time Spent Total Time Spent (In Minutes): 45 Discharge Plan Discharge Items Patient Disposition: Home - Self-Care Reason For Visit: ABDOMINAL PAIN, CHOLELITHIASIS Discharge Diagnosis: Cholecytsitis Goals: You have been hospitalized for an urgent problem which required surgery. During your stay at [facility], we have made an effort to correct the problem that brought you to the hospital while keeping you as comfortable as possible. Surgery and medications were used to bring your condition under control and your discharge instructions will include directions for any medications you should take after leaving the hospital. Please make sure to follow the advice of your surgeon regarding follow up with the surgeon and with your primary care provider. Activity: As commented below Lifting: No more than 10 pounds Lifting Comment: until seen by general surgery in follow up Non-emergency contact: Primary Care Provider and Surgeon Call non-emergency contact if: you have any medication questions, your symptoms worsen, your pain is not controlled and you have a fever Follow-up/Referrals: Elmer Sesay MD [Physician] - 04/22/22 12:45 pm Colton Matthews MD [Primary Care Provider] - 04/24/22 2:10 pm Diet: Regular Addtl Attending Provider Instructions: You have been hospitalized and found to have an acute gallbladder infection requiring surgery for removal. You were placed on IV antibiotics and supportive care and should continue Ciprofloxacin/Flagyl for antibiotics at discharge for another 5 days. You should not drink alcohol while on flagyl as this increases risk for nausea/vomiting. You will continue pain control as needed but can use Tylenol for non-severe pain. You should have follow up with Dr Sesay in the next 1-2 weeks to monitor your progress. You should follow up with primary care to monitor your progress after hospitalization. Please return to the ER with any worsening pain, fevers, inability to tolerate oral intake, redness/drainage from incision site, or for any other symptoms c oncerning for you. It has been a pleasure being a part of the medical team providing for you while you have been in the hospital. Take care! Addtl Rn Oncology [employer] Provider Instructions: Post-Surgical ~Discharge Instructions Activity Recommendations: - lifting limitation: (20 pounds for 4 weeks), - exercise/sex/sports limit: (nonstrenuous for 2 weeks), - driving or machine use limit: (none for 1 week or until pain free and no lo nger taking narcotic pain medication), - Shower/bathe limit: (may shower in 4 days) Diet: - Resume previous diet SPECIAL CARE INSTRUCTIONS: - May shower in 4 days. Sponge bath and wash hair in meantime. After 4 days, you can remove dressings you completely shower and let water run over incisions and pat dry. - Leave steri strips on for one week and then remove - Call the surgeon's office with any questions or concerns - - (ex. temperature higher than 101 degrees F, excessive bleeding or pain). MEDICATIONS: - Resume previous medications unless instructed otherwise by your surgeon - May alternate extra strength Tylenol and Ibuprofen as needed for mild to moderate pain -650 mg Tylenol every 6 hours as needed. - Ibuprofen 600 mg every 6 hours as needed (take with food) - Percocet 1 every 4 hours, as needed for pain - Recommend daily stool softener while taking narcotic pain medication to prevent constipation or straining. Drink plenty of water daily. - Take antibiotics as prescribed for 5 days FOLLOW UP VISIT: - If not already scheduled, please call the office to schedule a two week follow-up appointment. Office number Pending Studies at Discharge: No Stand-Alone Forms: My [email or web address]@ Project, Smoking Cessation Medications and DC Order Prescriptions: New ciprofloxacin HCl 500 mg tablet 500 mg PO BID Qty: 10 0RF metronidazole 500 mg tablet 500 mg PO Q8H 5 Days Qty: 15 0RF oxycodone-acetaminophen [Percocet] 5-325 mg Tablet 1 tab PO Q4H PRN (Reason: pain) Qty: 12 0RF No Action No Known Home Medications Discharge Orders: Discharge Order (Routine); Ordered 04/16/22 Ordered By: Lisa Shaikh Admission Data Admit Date/Time: 04/15/22 01:32 Attending Provider: Leoncio Napier Admit Provider: Spencer Gonzalez Primary Care Provider: Colton Matthews Other Providers: Gomez Tse ; Leoncio Mosley ; Jairo Castrejon ; Jay Whitten ; Fredi Louise ; Mau Sam ; Cat Ramirez ; Denny Buchanan ; Shreyas Navarro ; Desmond Dougherty Supervising Physician Co-Signing Physician Notes The patient was seen by me. The chart was reviewed. Discussed with ARMIN Iyer. Agree with assessment and plan. He is medically stable for discharge home today, April 16 Coding Level of Care Code 53480 INP/OBS DISCH >30 MIN Diagnoses Acute cholecystitis due to biliary calculus K80.00
== END 2022-04-16 17:05 | disposition home or self-care (01) | DRG 419 ==
LOC: ED 18:58 → SUATTDRO 04-15 01:32 → 3W 04-15 01:32
DX: K80.00 Calculus of gallbladder with acute cholecystitis without obstruction